=== PATIENT | female | born 1960 | race Caucasian/White ===

== ENCOUNTER 2018-04-04 11:52 | Emergency (ER) | END 2018-04-04 14:00 | disposition home or self-care (01) ==

== ENCOUNTER 2018-12-24 15:19 | Inpatient (IN) | payer OTHER ==
[~2018-12-24] VITALS: Ht 157.5 cm; Wt 82.6 kg
[~2018-12-24 15:19] MED LIST: NO HOME MEDS; SODI44SP19 NASAL
[2018-12-24] MEDS ORDERED: SOD CHLORIDE 0.9% 1,000 ML IV STA (15:57)
--- NOTE | 2018-12-24 16:30 | ERD ---
ER Documentation Chief Complaint Chief Complaint c/o dizziness and lost consciousness, fell in the restroom, hit back of kimani HARDIN This is a 58-year-old female who became dizzy while taking a shower, then was syncopal hitting the posterior left temporal region of her head on the floor. She has an unknown duration of LOC but woke up in the shower and then crawled out onto the floor to call for help. Her son is here who stated that when she called her speech was very garbled but when he saw her in the ER initially now it is back to normal speech but is in a high-pitched tone. The patient says she has slight difficulty swallowing with some slight pain but no shortness of breath. She is complaining of a left occipital parietal headache is constant. Denies any focal neurological symptoms of numbness and weakness in her arms legs or face. Denies any pre-syncopal chest pain shortness of breath ROS All systems reviewed and are negative except as per history of present illness. Medications Home Meds Reported Medications Naproxen* (Naproxen*) 500 Mg Tablet, 500 MG PO BID, TAB 12/24/18 Cyclobenzaprine Hcl* (Cyclobenzaprine Hcl*) 10 Mg Tablet, 10 MG PO QPM, #60 TAB 12/24/18 Losartan Potassium* (Losartan Potassium*) 25 Mg Tablet, 25 MG PO DAILY, TAB 12/24/18 Discontinued Reported Medications [No Home Meds] No Conflict Check 03/25/16 Discontinued Scripts Saline (Deep Sea) 44 Ml Dewey, 60 ML NASAL QID for 7 Days, SPRAY Prov:LAURA CAMPUZANO MD 04/04/18 Allergies Allergies: Coded Allergies: No Known Allergy (Unverified , 12/24/18) PMhx/Soc History of Surgery: Yes (TUMMY TUCK, CHOLECYSTECTOMY) Anesthesia Reaction: No Hx Neurological Disorder: No Hx Respiratory Disorders: No Hx Cardiac Disorders: No (htn) Hx Psychiatric Problems: Yes (depression) Hx Miscellaneous Medical Probl: No Hx Alcohol Use: No Hx Substance Use: No Hx Tobacco Use: No Smoking Status: Never smoker FmHx Family History: No coronary disease Physical Exam Vitals Vital Signs Date Temp Pulse Resp B/P (MAP) Pulse Ox O2 O2 Flow FiO2 Time Delivery Rate 12/24/18 98.2 83 16 131/81 100 Room Air 18:13 (98) 12/24/18 97.8 131 22 145/93 99 15:25 (110) Physical Exam Const: Well-developed, well-nourished answers questions appropriately but has a high-pitched raspy voice Head: Atraumatic, normocephalic Eyes: Normal Conjunctiva, PERRLA, EOMI, normal sclera, no nystagmus ENT: Normal External Ears, Nose and Mouth, moist mucus membranes. Neck: Full range of motion. No meningismus, no lymphadenopathy. Resp: Clear to auscultation bilaterally, no wheezing, rhonchi, rales Cardio: Regular rate and rhythm, no murmurs, S1 S2 present Abd: Soft, non tender x 4, non distended. Normal bowel sounds, no guarding or rebound, no pulsitile abdominal masses or bruits Skin: No petechiae or rashes, no ecchymosis , no maculopapular rash Back: No midline or flank tenderness Ext: No cyanosis, or edema, FROM x 4, normal inspection, neurovascularly intact x 4 Neur: Awake and alert, STR 5/5 x 4, sensation intact x 4, no focal findings, cerebellum intact Psych: Normal Mood and Affect Result Diagram: 12/24/18 1610 12/24/18 1610 Results 24 hrs Laboratory Tests Test 12/24/18 16:10 White Blood Count 8.2 10^3/ul Red Blood Count 5.70 10^6/ul Hemoglobin 16.4 g/dl Hematocrit 51.1 % Mean Corpuscular Volume 89.6 fl Mean Corpuscular Hemoglobin 28.8 pg Mean Corpuscular Hemoglobin Concent 32.1 g/dl Red Cell Distribution Width 12.9 % Platelet Count 372 10^3/UL Mean Platelet Volume 11.0 fl Immature Granulocytes % 1.100 % Neutrophils % 69.1 % Lymphocytes % 16.7 % Monocytes % 8.1 % Eosinophils % 4.3 % Basophils % 0.7 % Nucleated Red Blood Cells % 0.0 /100WBC Immature Granulocytes # 0.090 10^3/ul Neutrophils # 5.7 10^3/ul Lymphocytes # 1.4 10^3/ul Monocytes # 0.7 10^3/ul Eosinophils # 0.4 10^3/ul Basophils # 0.1 10^3/ul Nucleated Red Blood Cells # 0.0 10^3/ul Sodium Level 143 mmol/L Potassium Level 5.6 mmol/L Chloride Level 110 mmol/L Carbon Dioxide Level 19 mmol/L Anion Gap 14 Blood Urea Nitrogen 15 mg/dl Creatinine 0.86 mg/dl Est Glomerular Filtrat Rate mL/min > 60 mL/min Glucose Level 183 mg/dl Calcium Level 11.2 mg/dl Troponin I < 0.012 ng/ml Current Medications Medications Dose Sig/Zuhair Start Time Status Last (Trade) Ordered Route PRN Stop Time Admin Dose Reason Admin Sodium 1,000 ml @ Q1H STAT 12/24/18 DC 12/24/18 Chloride 1,000 mls/hr IV 15:57 12/24/18 16:25 16:56 IV Flush 10 ml STK-MED 12/24/18 DC (NS 10 ml) ONCE .ROUTE 17:44 12/24/18 17:45 Sodium 100 ml @ ud STK-MED 12/24/18 DC Chloride ONCE .ROUTE 17:44 12/24/18 17:45 Iohexol 150 ml STK-MED 12/24/18 DC (Omnipaque ONCE .ROUTE 17:44 12/24/18 300mg/ ml) 17:45 Procedures/MDM MR #: [id number] DOS: 12/24/18 1557 Ordering MD: YI KHAN DO Location: E/R Room/Bed: PROCEDURE: XR Chest, 1 View CLINICAL INDICATION: Syncope. TECHNIQUE: Frontal view of the chest. COMPARISON: 10/03/2011 (10/03/2011) FINDINGS: LUNGS: Unremarkable. No consolidation. PLEURAL SPACE: Unremarkable. No pneumothorax. HEART: Unremarkable. No cardiomegaly. MEDIASTINUM: Unremarkable. BONES/JOINTS: Mild degenerative spine changes. IMPRESSION: 1. No acute cardiopulmonary disease demonstrated. 2. There is no significant interval change from the previous study. RPTAT: [facility] Carli Beckham Physician Date Time Electronically viewed and signed by Carli Beckham Physician Medical Physics Researcher on 12/24/2018 17:10 [facility] [place]: YI KHAN DO [id number] EKG: Rate/Rhythm: Normal sinus rhythm heart rate 96 QRS, ST, QT: NORMAL MI, QRS, QT] Impression: Borderline EKG PROCEDURE: CT soft tissue neck with contrast CLINICAL INDICATION: T9 neural female. Fell. Low sided neck trauma. TECHNIQUE: The study was performed utilizing a multidetector CT scanner. Direct thin section helically acquired axial sections were obtained through the neck after the uneventful intravenous administration of contrast. One or more the following dose reduction techniques were utilized: Automated exposure control, adjustment of the mA/ or kV according to patient's size, or use of iterative reconstruction technique. Coronal and sagittal reformations were obtained. The images were reviewed on a PACS workstation. The CTDIvol is 9.36 mGy and the DLP is see 221.87 mGycm. CONTRAST: 90 cc Omnipaque-300 IV COMPARISON: None. FINDINGS: Visualized brain and orbits: The globes and anterior retro-orbital soft tissues are not included in the film of view. Normal appearing visualized brain. Soft tissues: The anterior face and chin are not included in the film of view. Beam hardening artifact from dental metal. Normal appearing parotid and submandibular glands. Visualized rolls baker spaces, pterygopalatine fossae and fat fill parapharyngeal spaces are unremarkable. Tonsillar pillars are mildly prominent. Small calcification anterior right tonsillar pillar. Slightly prominent lymphoid tissue at the base of tongue projects into the vallecula. Normal appearing oropharynx and hypopharynx. Negative larynx. Normal appearing thyroid gland. Precervical and retropharyngeal soft tissues are unremarkable. Lymph nodes: No pathologic adenopathy. Superior mediastinum: No mass or adenopathy. Visualized lung apices: No suspicious pulmonary nodules. Airway: Patent. Osseous structures: No lytic or blastic lesions. IMPRESSION: 1. Mildly prominent tonsillar pillars. 2. Normal appearing larynx. 3. No mass, adenopathy or abnormal fluid collection. RPTAT: [facility] R-Anselmo Melissa, Physician Date Time Electronically viewed and signed by Lamar Torres, Physician on 12/24/2018 18:47 RS/ CC: YI KHAN DO [id number] Patient's syncopal symptoms are unstable at this time and require inpatient workup. No evidence of PE or dissection at this time but occult ischemia or fatal dysrhythmia cannot be ruled out. Patient's voice is now back to normal again. Departure Diagnosis: Primary Impression: Syncope Syncope type: unspecified Qualified Codes: R55 - Syncope and collapse Condition: Stable YI KHAN DO Dec 24, 2018 16:30
[2018-12-24] MEDS ORDERED: LOSA25TA12 PO (16:54)
[2018-12-24] MEDS ORDERED: CYCL10TA7 PO (16:54)
[2018-12-24] MEDS ORDERED: NAPR-688 PO (16:55)
[2018-12-24] MEDS ORDERED: IOHEXOL 300MG/ML 150 ML BTL ONE (17:44)
[2018-12-24] MEDS ORDERED: SOD CHLORIDE 0.9% 100 ML ONE (17:44)
[2018-12-24] MEDS ORDERED: SOD CHLORIDE 0.9% 1,000 ML IV SCH (19:14)
[2018-12-24] MEDS ORDERED: ACETAMINOPHEN 325 MG TAB PO PRN (19:30)
[2018-12-24] MEDS ORDERED: ONDANSETRON 4 MG INJ IV PRN (19:30)
[2018-12-24] MEDS ORDERED: ONDANSETRON 4 MG TAB PO PRN (20:00)
[2018-12-24] MEDS ORDERED: NACL 0.9% 3 ML SYG IV SCH (20:00)
[2018-12-24] MEDS ORDERED: BISACODYL (EC) 5 MG TAB PO PRN (20:00)
[2018-12-24] MEDS ORDERED: DOCUSATE SODIUM 100 MG CAP PO PRN (20:00)
[2018-12-24 21:32] VITALS: PULSE 94
[2018-12-24 22:00] VITALS: Ht 157.5 cm; Wt 82.6 kg
[2018-12-25] VITALS (13 sets, daily range): BP systolic 121–182; BP diastolic 72–94; PULSE 67–103; RESP 16–20
--- NOTE | 2018-12-25 02:06 | HP ---
Date/Time of Note Date/Time of Note DATE: 12/25/18 TIME: 02:06 Assessment/Plan VTE Prophylaxis Risk score (from Ns)>0 risk: 3 SCD applied (from Ns): Yes Pharmacological prophylaxis: NA/contraindicated Pharm contraindication: low risk/ambulating Lines/Catheters IV [facility] Peripheral IV Assessment/Plan Hospital Course This is a 58-year female being admitted to the telemetry floor for observation for: 1. Syncope: Cardiogenic versus neurocardiogenic versus vasovagal versus situational: Based on patient's presentation this appears to be likely secondary to situational/orthostatic given patient's multiple bowel movements along with supervising in the chart. She does appear clinically dry and her cell lines appear concentrated. Will hydrate the patient with normal saline bolus. Will repeat labs in the a.m. Will check a hemoglobin A1c, lipid panel, TSH. Will check carotid Dopplers. Will check an echocardiogram. Orthostatic vital signs. #2 hypertension: Resume home medication when clinically indicated hold for now, check orthostatics, resume home medication when clinically indicated. #3 chronic constipation: We will check TSH, I did discuss with the patient regarding following up as an outpatient GI regarding this. #4 depression: Confirm patient's home medications and resume #5 gastritis: Protonix #6 prediabetes: We will check hemoglobin A 1C #7 obesity: We will check hemoglobin A1c, lipid panel, TSH #8 DVT GI prophylaxis: SCDs, Protonix Further treatment strategy will be implemented as per the clinical course Result Diagram: 12/24/18 1610 12/24/18 1610 Results 24hrs Laboratory Tests Test 12/24/18 16:10 12/24/18 21:58 White Blood Count 8.2 # Red Blood Count 5.70 #H Hemoglobin 16.4 #H Hematocrit 51.1 #H Mean Corpuscular Volume 89.6 Mean Corpuscular Hemoglobin 28.8 L Mean Corpuscular Hemoglobin Concent 32.1 Red Cell Distribution Width 12.9 Platelet Count 372 # Mean Platelet Volume 11.0 H Immature Granulocytes % 1.100 H Neutrophils % 69.1 Lymphocytes % 16.7 Monocytes % 8.1 Eosinophils % 4.3 Basophils % 0.7 Nucleated Red Blood Cells % 0.0 Immature Granulocytes # 0.090 H Neutrophils # 5.7 Lymphocytes # 1.4 Monocytes # 0.7 Eosinophils # 0.4 Basophils # 0.1 Nucleated Red Blood Cells # 0.0 Sodium Level 143 Potassium Level 5.6 H Chloride Level 110 Carbon Dioxide Level 19 L Anion Gap 14 H Blood Urea Nitrogen 15 Creatinine 0.86 Est Glomerular Filtrat Rate mL/min > 60 Glucose Level 183 Calcium Level 11.2 H Troponin I < 0.012 < 0.012 Creatine Kinase 50 Creatine Kinase Index 0.4 Creatinine Kinase MB (Mass) < 0.22 HPI/ROS Admit Date/Time Admit Date/Time Dec 24, 2018 at 19:15 Hx of Present Illness cc: Chief complaint: Syncope This is a 58-year female who presented after a syncopal episode in the shower. Patient reports that she was going through a bowel cleanse and ended up going to the bathroom and had multiple bowel movements after which she felt tired. She states that she after that went into the shower and over there felt hot and lightheaded and ended up falling. She had a loss of consciousness. She did hit her head. She states that she took the bowel prep because she has a history of ongoing constipation and at times does not go to the bathroom for 4 days. She denies any chest pain or shortness of breath. At the current time she denies any numbness or weakness in her arms bilaterally. Allergies: NKDA medications: See ISAIAH ZAMORANO Const: As per HPI Eyes : No pain discharge or redness or change in visual acuity ENT: No pain, sore throat, congestion, congestion, dysphagia or discharge Respiratory: No shortness of breath, cough, sputum, wheezing, or pleuritic pain Cardiovascular: No chest pain, palpitation, PND, or edema GI : As per HPI Genitourinary: No dysuria, hematuria, flank pain , discharge or CVA tenderness Musculoskeletal: No joint pain, back pain, neck pain, restricted range of motion in neck or joints Skin: No rash, bruising or hives Neuro: As per HPI Endocrine: No polyuria, polydipsia, temperature intolerance Psych: No hallucination, depression, anxiety or suicidal ideation PMH/Family/Social Past Medical History Constipation, hypertension, depression, gastritis, prediabetes Medications Current Medications Sodium Chloride 1,000 ml @ 80 mls/hr [id number] IV Last administered on 12/24/18at 22:01; Admin Dose 80 MLS/HR; Start 12/24/18 at 19:14; Stop 12/25/18 at 07:43 Ondansetron HCl (Zofran Inj) 4 mg ER BRIDGE PRN IV NAUSEA/VOMITING; Start 12/24/18 at 19:30; Stop 12/25/18 at 19:29 Acetaminophen (Tylenol Tab) 650 mg ER BRIDGE PRN PO .MILD PAIN 1-3 OR TEMP Last administered on 12/24/18at 20:00; Admin Dose 650 MG; Start 12/24/18 at 19:30; Stop 12/25/18 at 19:29 IV Flush (NS 3 ml) 3 ml PER PROTOCOL IV ; Start 12/24/18 at 20:00 Ondansetron HCl (Zofran Tab) 4 mg Q6H PRN PO NAUSEA/VOMITING; Start 12/24/18 at 20:00 Acetaminophen (Tylenol Tab) 650 mg Q6H PRN PO .PAIN 1-3 OR TEMP; Start 12/24/18 at 20:00 Docusate Sodium (Colace) 100 mg Q12H PRN PO .CONSTIPATION; Start 12/24/18 at 20:00 Bisacodyl (Dulcolax) 5 mg DAILY PRN PO .CONSTIPATION; Start 12/24/18 at 20:00 Coded Allergies: No Known Allergy (Unverified , 12/24/18) Past Surgical History Past Surgical Hx: cholecystectomy Family History Significant Family History: no pertinent family hx Social History Alcohol Use: none Smoking Status: Never smoker Drug Use: none Exam/Review of Systems Vital Signs Vitals Vital Signs Date Temp Pulse Resp B/P (MAP) Pulse Ox O2 O2 Flow FiO2 Time Delivery Rate 12/25/18 88 00:00 12/25/18 98.2 16 123/74 94 00:00 (90) 12/24/18 Room Air 21:12 Exam Exam General: Patient is a pleasant female currently lying in bed in no acute distress HEENT: Atraumatic, normocephalic. The pupils are equal, round and reactive. Extraocular motor are intact, dry mucous membranes Neck: Supple with full range of motion. No rigidity or meningismus Chest: Nontender Lungs: Clear to auscultation bilaterally no crackles rales or wheezing Heart: Normal S1-S2, Regular rhythm and rate. No murmur, S3, or S4 Abdomen: Soft , nontender, nondistended , bowel sounds are present. No guarding no rebound tenderness , No masses or organomegaly. No costovertebral temporal angle mass Extremities: Trace bilateral nonpitting edema of lower extremities as well as upper extremity Neurologic: Normal mental status, speech normal, cranial nerves II through XII are intact, motor and sensory are intact, no focal weakness, strength 5 out of 5 in bilateral upper and lower extremities. No focal neurological deficits noted. Additional Comments EKG: Rate/Rhythm: Normal sinus rhythm heart rate 96 QRS, ST, QT: NORMAL LA, QRS, QT] PROCEDURE: XR Chest, 1 View CLINICAL INDICATION: Syncope. TECHNIQUE: Frontal view of the chest. COMPARISON: 10/03/2011 (10/03/2011) FINDINGS: LUNGS: Unremarkable. No consolidation. PLEURAL SPACE: Unremarkable. No pneumothorax. HEART: Unremarkable. No cardiomegaly. MEDIASTINUM: Unremarkable. BONES/JOINTS: Mild degenerative spine changes. IMPRESSION: 1. No acute cardiopulmonary disease demonstrated. 2. There is no significant interval change from the previous study. RPTAT: [facility] Carli Beckham Physician Dye Padder Operator Date Time Electronically viewed and signed by Carli Beckham Physician Dye Padder Operator on 12/24/2018 17:10 [facility] [place]: YI KHAN DO [id number] PROCEDURE: CT Brain without contrast. CLINICAL INDICATION: Trauma TECHNIQUE: A CT of the brain was performed on a [employer] 64-slice CT scanner utilizing axial imaging from the skull base through the vertex without IV contrast. Multiplanar reformatted images were made. Images were reviewed on a PACS workstation. The CTDIvol is 38.7 mGy and the DLP is 698 mGycm. DICOM images are available. One or more of the following dose reduction techniques were utilized: 1.) Automated exposure control 2.) Adjustment of the mA +/- kV according to patient's size 3.) Use of iterative reconstruction technique. COMPARISON: None FINDINGS: There is no intracranial hemorrhage, mass effect, or midline shift. No extra- axial fluid collection is seen. The ventricles and sulci are normal in size and configuration. The density of the brain is normal, and the melvin white matter differentiation appears well-preserved. The visualized paranasal sinuses and o sseous structures are grossly unremarkable. IMPRESSION: 1. No evidence of acute intracranial pathology. Physician Nora Date Time Electronically viewed and signed by Demetrius Wolf Physician on 12/24/2018 18:37 ML/ CC: YI KHAN DO [id number] PROCEDURE: CT soft tissue neck with contrast CLINICAL INDICATION: T9 neural female. Fell. Low sided neck trauma. TECHNIQUE: The study was performed utilizing a multidetector CT scanner. Direct thin section helically acquired axial sections were obtained through the neck after the uneventful intravenous administration of contrast. One or more the following dose reduction techniques were utilized: Automated exposure control, adjustment of the mA/ or kV according to patient's size, or use of iterative reconstruction technique. Coronal and sagittal reformations were obtained. The images were reviewed on a PACS workstation. The CTDIvol is 9.36 mGy and the DLP is see 221.87 mGycm. CONTRAST: 90 cc Omnipaque-300 IV COMPARISON: None. FINDINGS: Visualized brain and orbits: The globes and anterior retro-orbital soft tissues are not included in the film of view. Normal appearing visualized brain. Soft tissues: The anterior face and chin are not included in the film of view. Beam hardening artifact from dental metal. Normal appearing parotid and submandibular glands. Visualized soc analyst spaces, pterygopalatine fossae and fat fill parapharyngeal spaces are unremarkable. Tonsillar pillars are mildly prominent. Small calcification anterior right tonsillar pillar. Slightly prominent lymphoid tissue at the base of tongue projects into the vallecula. Normal appearing oropharynx and hypopharynx. Negative larynx. Normal appearing thyroid gland. Precervical and retropharyngeal soft tissues are unremarkable. Lymph nodes: No pathologic adenopathy. Superior mediastinum: No mass or adenopathy. Visualized lung apices: No suspicious pulmonary nodules. Airway: Patent. Osseous structures: No lytic or blastic lesions. IMPRESSION: 1. Mildly prominent tonsillar pillars. 2. Normal appearing larynx. 3. No mass, adenopathy or abnormal fluid collection. RPTAT: [facility] Physician Gayatri Date Time Electronically viewed and signed by Lamar Torres Physician on 12/24/2018 18:47 RS/ CC: YI KHAN DO [id number] LILIYA OLIVAREZ Dec 25, 2018 02:06
[2018-12-25] MEDS ORDERED: SOD CHLORIDE 0.9% 1,000 ML IV ONE (08:00)
[2018-12-25] MEDS: SOD CHLORIDE 0.9% 1,000 ML IV SCH (12:21)
[2018-12-25] MEDS: ACETAMINOPHEN 325 MG TAB PO PRN (15:51)
[2018-12-25] MEDS: hydrALAzine 20 MG INJ IV PRN (16:04)
--- NOTE | 2018-12-25 19:13 | PN ---
Date/Time of Note Date/Time of Note DATE: 12/25/18 TIME: 19:13 Objective Vitals Vital Signs Date Temp Pulse Resp B/P (MAP) Pulse Ox O2 O2 Flow FiO2 Time Delivery Rate 12/25/18 83 17:10 12/25/18 135/83 17:07 (100) 12/25/18 97.7 20 100 Room Air 15:46 Intake and Output 12/24/18 12/24/18 12/25/18 1515:00 23:00 07:00 IntakeIntake Total 1250 ml BalanceBalance 1250 ml Results Result Diagram: 12/25/18 0411 12/25/18410 Medications Medications Current Medications IV Flush (NS 3 ml) 3 ml PER PROTOCOL IV ; Start 12/24/18 at 20:00 Ondansetron HCl (Zofran Tab) 4 mg Q6H PRN PO NAUSEA/VOMITING; Start 12/24/18 at 20:00 Acetaminophen (Tylenol Tab) 650 mg Q6H PRN PO .PAIN 1-3 OR TEMP Last administered on 12/25/18at 15:51; Admin Dose 650 MG; Start 12/24/18 at 20:00 Docusate Sodium (Colace) 100 mg Q12H PRN PO .CONSTIPATION; Start 12/24/18 at 20:00 Bisacodyl (Dulcolax) 5 mg DAILY PRN PO .CONSTIPATION; Start 12/24/18 at 20:00 Sodium Chloride 1,000 ml @ 40 mls/hr Q24H IV Last administered on 12/25/18at 12:21; Admin Dose 40 MLS/HR; Start 12/25/18 at 12:30; Stop 12/26/18 at 13:29 Hydralazine HCl (Apresoline) 10 mg Q4H PRN IV sbp >160 Last administered on 12/25/18at 16:04; Admin Dose 10 MG; Start 12/25/18 at 16:00 Acetaminophen/ Hydrocodone Bitart ([place] (5/325)) 1 tab Q4H PRN PO MODERATE PAIN LEVEL 4-6; Start 12/25/18 at 16:00 VTE Prophylaxis Risk score (from Ns)>0 risk: 2 SCD applied (from Ns): Yes Lines/Catheters IV Catheter Type: Ramirez in Place: No Assessment/Plan Hospital Course Subjective -Patient feeling much better however patient still positive for orthostatic h ypotension Objective Physical exam General: Patient is laying in bed and answers questions appropriately Mentation: Patient is alert and oriented 4, Head: Normocephalic atraumatic Eyes: EOMI, pupils reactive to light Neck: Supple, nontender, midline Respiratory: Clear to auscultation bilaterally Cardiovascular: regular rate, no obvious murmurs Gastrointestinal: non-tender to palpation, bowel sounds heard. Neurological: Moves all extremities spontaneously Skin: No new skin lesions Assessment and plan Syncope -Patient positive orthostatics, with her recent history of taking a homemade [place] diuretic medication and multiple bowel movements is still very likely that volume depletion is likely cause of patient's syncopal episode -We will continue IV fluids, will reassess orthostatics tomorrow -CT negative -MRI pending -Ultrasound carotid negative -Echo pending Hypertension -Currently has orthostatic hypotension, hold off on home meds for now, treat as needed but be careful and monitor Chronic constipation -Patient advised not to make homemade remedies that will cause her to have intense diarrhea Gastritis -PPI for now Prediabetes -A1c is theoretically within diabetic range, 6.5, will discuss with patient and likely discharge with low-dose metformin Obesity -Monitor Disposition -Follow-up with MRI results and recheck for orthostatic vitals tomorrow. GONZALEZ ROSA Dec 25, 2018 19:13
[2018-12-26] VITALS (9 sets, daily range): BP systolic 130–193; BP diastolic 83–93; PULSE 75–131; RESP 19–20
[2018-12-26] MEDS: ACETAMINOPHEN 325 MG TAB PO PRN (00:16)
[2018-12-26] MEDS: hydrALAzine 20 MG INJ IV PRN (02:12)
[2018-12-26] MEDS: HYDROCODONE/APAP (5/325) TAB PO PRN ×2 (03:10→08:54)
[2018-12-26] MEDS ORDERED: LABETALOL HCL 20MG INJ IV ONE (06:00)
[2018-12-26] MEDS ORDERED: traMADol 50 MG TAB PO ONE (06:30)
[2018-12-26] MEDS ORDERED: LOSARTAN 25 MG TAB PO SCH (09:00)
--- NOTE | 2018-12-26 10:29 | PDOCDIS ---
Discharge Instructions CONDITION [id number] Patient Condition: [id number] Stable FOLLOW UP/APPOINTMENTS Follow-up Plan 1. Please follow-up with your primary care provider to obtain records of your echocardiogram that you did not wait for the results at discharge #2 please continue current medications #3 please tell your primary care physician that your hemoglobin A1c is theoretically within diabetic range of 6.5%, and he was started on metformin 4. Please continue Pepcid, available over the counter, as needed as long as you are taking anti-inflammatories for your hand pain 5. If headache continues please return to the ED 6. If another syncopal episode happens again please return to the ED GONZALEZ ROSA Dec 26, 2018 10:29
[2018-12-26] MEDS ORDERED: METF-849 PO (10:32)
--- NOTE | 2018-12-26 10:38 | DS ---
Date/Time of Note Date/Time of Note DATE: 12/26/18 TIME: 10:37 Discharge Summary Admission/Discharge Info Admit Date/Time Dec 25, 2018 at 12:05 Discharge Date/Time Patient Condition: Stable Hospital Course Patient is a female with a past medical history significant for hypertension chronic constipation and some hand arthritic pain who originally presented to [facility] for syncopal episode. Patient was found to be using a homemade [place] diuretic medication and had multiple bowel movements and was subsequently likely volume depleted and which led to her syncopal episode. Patient's blood lines did consistent with someone who was volume depleted and patient was given IV fluids. Patient was checked with vital status and was doing well. Patient's blood pressure medications were held due to the fact that she could also be having possible orthostatic hypotension however there was a miscommunication and patient technically did not have orthostatic hypotension during the stay. Patient however did have labile blood pressures which warranted continued monitoring. Patient developed a very mild headache subsequent the after MRI as the pounding of the MRI machine disturbs her however now the patient is taking her blood pressure medication she is feeling significantly better. Patient was instructed to follow with her primary care provider and bring all the records as she obtained an MRI and CT during the stay which were negative for acute intracranial issues. Patient's hemoglobin A1c is technically within diabetic range of 6.5 and patient wishes to start on a low dose of metformin. It was given the option for patient to just start diet and to discuss further options with her primary care doctor but she opted to start with a low-dose metformin. Patient did have a history of prediabetes before this admission. It was also advised not to take homemade remedies for diuretics. Patient will follow-up and obtain records of echocardiogram when available as the results are not available at this time. Patient feels well has not been complaining of any palpitations or any significant cardiac issues. I offered the patient to continue to stay inpatient while awaiting echocardiogram results however patient opted to be discharged at this time is that she will follow-up and obtain the results herself. Patient will be discharged to follow- up with her primary care provider within 1 week Discharge diagnosis Syncope, likely vasovagal due to volume depletion, resolved Hypertension, chronic Chronic constipation Questionable gastritis, ?Diabetes Obesity Home Meds Reported Medications Naproxen* (Naproxen*) 500 Mg Tablet, 500 MG PO BID, TAB 12/24/18 Cyclobenzaprine Hcl* (Cyclobenzaprine Hcl*) 10 Mg Tablet, 10 MG PO QPM, #60 TAB 12/24/18 Losartan Potassium* (Losartan Potassium*) 25 Mg Tablet, 25 MG PO DAILY, TAB 12/24/18 Discontinued Reported Medications [No Home Meds] No Conflict Check 03/25/16 Discontinued Scripts Saline (Deep Sea) 44 Ml [place], 60 ML NASAL QID for 7 Days, SPRAY Prov:LAURA CAMPUZANO MD 04/04/18 Follow-up Plan 1. Please follow-up with your primary care provider to obtain records of your echocardiogram that you did not wait for the results at discharge #2 please continue current medications #3 please tell your primary care physician that your hemoglobin A1c is theoretically within diabetic range of 6.5%, and he was started on metformin 4. Please continue Pepcid, available over the counter, as needed as long as you are taking anti-inflammatories for your hand pain 5. If headache continues please return to the ED 6. If another syncopal episode happens again please return to the ED Primary Care Provider Not On Staff Doctor Time spent on discharge: > 30 minutes Pending Labs Laboratory Tests Test 12/26/18 05:59 White Blood Count 6.4 10^3/ul (4.8-10.8) Red Blood Count 4.57 10^6/ul (4.20-5.40) Hemoglobin 13.0 g/dl (12.0-16.0) Hematocrit 40.6 % (37.0-47.0) Mean Corpuscular Volume 88.8 fl (82.0-101.0) Mean Corpuscular Hemoglobin 28.4 pg (29.0-33.0) Mean Corpuscular Hemoglobin Concent 32.0 g/dl (32.0-37.0) Red Cell Distribution Width 12.7 % (11.5-14.5) Platelet Count 272 10^3/UL (140-415) Mean Platelet Volume 11.3 fl (7.4-10.4) Immature Granulocytes % 0.900 % (0.001-0.429) Neutrophils % 54.2 % (39.0-77.0) Lymphocytes % 27.9 % (15.0-51.0) Monocytes % 9.6 % (0.0-11.0) Eosinophils % 6.6 % (0.0-7.0) Basophils % 0.8 % (0.0-2.0) Nucleated Red Blood Cells % 0.0 /100WBC (0.0-0.0) Immature Granulocytes # 0.060 10^3/ul (0.0-0.031) Neutrophils # 3.5 10^3/ul (1.6-7.5) Lymphocytes # 1.8 10^3/ul (0.8-2.9) Monocytes # 0.6 10^3/ul (0.3-0.9) Eosinophils # 0.4 10^3/ul (0.0-0.5) Basophils # 0.1 10^3/ul (0.0-0.1) Nucleated Red Blood Cells # 0.0 10^3/ul (0.0-0.0) Sodium Level 141 mmol/L (135-144) Potassium Level 4.0 mmol/L (3.5-5.1) Chloride Level 108 mmol/L (97-110) Carbon Dioxide Level 21 mmol/L (21-31) Anion Gap 12 (5-13) Blood Urea Nitrogen 13 mg/dl (7-20) Creatinine 0.42 mg/dl (0.44-1.00) Est Glomerular Filtrat Rate mL/min > 60 mL/min (>60) Glucose Level 132 mg/dl (70-220) Calcium Level 9.6 mg/dl (8.4-10.2) Phosphorus Level 4.2 mg/dl (2.5-4.9) Magnesium Level 1.9 mg/dl (1.7-2.5) GONZALEZ ROSA Dec 26, 2018 10:38
[2018-12-26] MEDS ORDERED: ONDANSETRON 4 MG INJ IV STA (12:16)
--- NOTE | 2018-12-26 12:16 | RADRPT ---
Echocardiogram Report Patient Name: MYRNA MARIEPatient ID: [id number] : 1960 (58y 6m)Study Date: 12/25/2018 9:58:03 AM Gender: FAccession #: [id number] Tech: Joce Alberto [facility] Location: [id number] Ref.Physician: LILIYA OLIVAREZ Height(Cm): BSA: Weight(Kg): Quality: AdequateAccount #: Procedures: Echocardiographic Report: Transthoracic echocardiogram with complete 2D, M-Mode, and doppler examination. Indications: Chest Pain. Measurements: 2D/M Mode Doppler Measurement Value Normal Range Measurement Value Normal Range LVIDd 2D 3.8 [ 3.8 - 5.2 ] cm AV Peak Kane 1.6 [ 100.0 - 170.0 ] cm/sec LVIDs 2D 2.5 [ 2.2 - 3.5 ] cm AV Peak PG 10.0 [ 2.0 - 9.0 ] mmHg LVPWd 2D 1.3 [ 0.6 - 0.9 ] cm LVOT Peak Kane 1.3 [ 70.0 - 110.0 ] cm/sec IVSd 2D 1.4 [ 0.6 - 0.9 ] cm LVOT Peak PG 6.0 [ 2.0 - 6.0 ] mmHg AoR Diam 2D 2.7 [ 2.3 - 3.1 ] cm MV E Peak Kane 0.9 [ 60.0 - 130.0 ] cm/sec EDV 2D 62.0 [ 46.0 - 106.0 ] ml MV A Peak Kane 1.1 [ 100.0 - 120.0 ] cm/sec ESV 2D 21.4 [ 14.0 - 42.0 ] ml MV E/A 0.8 [ 0.8 - 1.5 ] ratio EF 2D 65.5 [ 54.0 - 74.0 ] percent MV Decel Time 229 [ 104 - 258 ] msec LA Dimen 2D 3.0 [ 2.7 - 3.8 ] cm Lat E` Kane 0.1 [ 10.0 - 15.0 ] cm/sec Lateral E/E` 8.0 [ 1.0 - 2.0 ] ratio MV E/A 0.8 [ 0.8 - 1.5 ] ratio TR Peak Kane 2.5 [ 100.0 - 280.0 ] cm/sec TR Peak PG 26.0 mmHg RVSP 29.0 [ 10.0 - 36.0 ] mmHg Findings: Left Ventricle: Normal left ventricular systolic function. Normal left ventricular cavity size. Ejection fraction is visually estimated at 65 %. Tissue Doppler/Mitral Doppler indices are consistent with impaired relaxation (Stage I diastolic dysfunction). Right Ventricle: Normal right ventricular size. Normal right ventricular systolic function. Left Atrium: The left atrium is normal in size. Right Atrium: The right atrium is normal in size. Mitral Valve: Normal appearance of the mitral valve. Normal appearance and function of the mitral valve with trace physiologic regurgitation. Trace mitral regurgitation. Aortic Valve: Normal appearance of the aortic valve. Tricuspid Valve: Normal appearance of the tricuspid valve. Estimated peak PA systolic pressure 29 mmHg. There is mild tricuspid regurgitation. Pulmonic Valve: Normal pulmonic valve appearance. Pericardium: Normal pericardium with no significant pericardial effusion. Aorta: Normal aortic root. IVC: Normal size and normal respiratory collapse consistent with normal right atrial pressure. Conclusions: Normal left ventricular systolic function. Normal left ventricular cavity size. Ejection fraction is visually estimated at 65 %. Tissue Doppler/Mitral Doppler indices are consistent with impaired relaxation (Stage I diastolic dysfunction). No significant valvular stenosis or regurgitation seen. Estimated peak PA systolic pressure 29 mmHg. Normal size and normal respiratory collapse consistent with normal right atrial pressure. Electronically Signed By: Maxi Mo 2018-12-26 12:15:05 PDT
[2018-12-26] MEDS: SOD CHLORIDE 0.9% 1,000 ML IV SCH (12:30)
== END 2018-12-26 15:30 | disposition home or self-care (01) | DRG 312 ==
LOC: E/R 15:19 → TEL 19:15 → OBSVTOIN 12-25 12:05
PROVIDERS: ADMIT Family Medicine; ATTEND Internal Medicine
DX: R55 Syncope and collapse (principal); I10 Essential (primary) hypertension; K59.09 Other constipation; F32.9 Major depressive disorder, single episode, unspecified; K29.70 Gastritis, unspecified, without bleeding; R73.03 Prediabetes; E66.9 Obesity, unspecified; Z68.33 Body mass index [BMI] 33.0-33.9, adult; E86.9 Volume depletion, unspecified
CPT/HCPCS: 36415; 70450; 70491; 70551; 71045; 76705; 80048; 80053; 80061; 81001; 81003; 82550; 82553; 83036; 83735; 84100; 84443; 84484; 85025; 86704; 86709; 86803; 87340; 93005; 93306; 93880; G0378; J0360; J2405; J7030; Q9967